=== PATIENT | female | born 1980 | race Native Hawaiian/Other Pacific Islander ===

== ENCOUNTER 2019-02-26 11:25 | Day surgery (SDC) | payer OTHER ==
[2019-02-26 12:09] LABS: PLATELET COUNT 276 K/uL (152-353)
== END 2019-02-26 16:15 | disposition home or self-care (01) ==
LOC: OR 11:25
PROVIDERS: Internal Medicine Gastroenterology
PROC: 0DB68ZZ Excision of Stomach, Via Natural or Artificial Opening Endoscopic (ICD-10-PCS; principal; 2019-02-26)
PROC: 0D738ZZ Dilation of Lower Esophagus, Via Natural or Artificial Opening Endoscopic (ICD-10-PCS; 2019-02-26)
DX: K22.10 Ulcer of esophagus without bleeding (principal); K22.2 Esophageal obstruction; K29.50 Unspecified chronic gastritis without bleeding; B96.81 Helicobacter pylori [H. pylori] as the cause of diseases classified elsewhere; K21.0 Gastro-esophageal reflux disease with esophagitis; R13.19 Other dysphagia; K29.80 Duodenitis without bleeding
CPT/HCPCS: 85027; J2001; J2405; J2704

== ENCOUNTER 2019-08-25 18:32 | Emergency (ER) | payer OTHER ==
[~2019-08-25] VITALS: Ht 157.5 cm; Wt 94.3 kg
[2019-08-25] MEDS ORDERED: AMITRIPTYLINE H50 MG PO (19:14)
[2019-08-25] MEDS ORDERED: DOXE25CA18 PO (19:15)
[2019-08-25] MEDS ORDERED: PROTONIX20 MG PO (19:15)
[2019-08-25 19:43] LABS: PLATELET COUNT 372 K/uL (152-353)
[2019-08-25 19:50] LABS: POTASSIUM 3.5 mmol/L (3.6-5.2)
[2019-08-25 21:06] VITALS: BP 141/99; TEMP 98.5
== END 2019-08-25 21:12 | disposition home or self-care (01) ==
LOC: ED 18:32
PROVIDERS: Family Medicine
DX: J01.80 Other acute sinusitis (principal); F17.210 Nicotine dependence, cigarettes, uncomplicated
CPT/HCPCS: 36415; 80053; 80307; 85027; 87651; 99283

== ENCOUNTER 2020-04-06 10:00 | Outpatient (CLI) | payer OTHER ==
[~2020-04-06 10:00] MED LIST: AMITRIPTYLINE H50 MG PO; DOXE25CA18 PO; PROTONIX20 MG PO
== END 2020-04-06 19:12 | disposition home or self-care (01) ==
LOC: LAB 10:00
PROVIDERS: ATTEND Family Medicine
DX: Z20.828 Contact with and (suspected) exposure to other viral communicable diseases (principal)
CPT/HCPCS: 87635; G2023; U0003